=== PATIENT | female | born 1995 | race Caucasian/White ===

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

== ENCOUNTER 2018-06-04 17:50 | Emergency (ER) | payer BC, OTHER ==
[2018-06-04 18:18] VITALS: BP 119/66
--- NOTE | 2018-06-04 18:33 | UC ---
Throat Pain/Nasal Giovanni HPI - HPI Summary HPI Summary: Cold symptoms for 2 days with head congestion, sore throat, feels like she wants to vomit. - History of Current Complaint Chief Complaint: UCGeneralIllness Stated Complaint: SORE THROAT,NAUSEA, CONGESTION Time Seen by Provider: 06/04/18 18:25 Hx Obtained From: Patient Hx Last Menstrual Period: 05/15/18 ?: No Onset/Duration: Gradual Onset Severity: Mild Pain Intensity: 7 Cough: None Associated Signs & Symptoms: Positive: Nasal Discharge - Epiglottits Risk Factors Epiglottis Risk Factors: Negative - Allergies/Home Medications Allergies/Adverse Reactions: Allergies Allergy/AdvReac Type Severity Reaction Status Date / Time No Known Allergies Allergy Verified 06/04/18 18:18 Home Medications: Home Medications Biotin 1 mg PO DAILY 06/04/18 [History Confirmed 06/04/18] Spironolactone TAB* [Aldactone TAB*] 100 mg PO DAILY 06/04/18 [History Confirmed 06/04/18] l-Norgest/E.estradiol-E.estrad [Ashlyna 0.15-0.03-0.01 mg Tab] 1 each PO DAILY 06/04/18 [History Confirmed 06/04/18] PMH/Surg Hx/FS Hx/Imm Hx Previously Healthy: Yes - Surgical History Surgical History: Yes Surgery Procedure, Year, and Place: b/l wrists, [place] teeth, - Family History Known Family History: Positive: Other - GF with prostate cancer Negative: Respiratory Disease - Social History Occupation: Student Lives: Dormitory/Roommates Alcohol Use: Occasionally Substance Use Type: None Smoking Status (MU): Never Smoked Tobacco Review of Systems All Other Systems Reviewed And Are Negative: Yes ENT: Positive: Sore Throat, Nasal Discharge, Sinus Congestion Is Patient Immunocompromised?: No Physical Exam Triage Information Reviewed: Yes Appearance: Well-Appearing, No Pain Distress, Well-Nourished Vital Signs: Initial Vital Signs Temp 98.1 F 06/04/18 18:15 Pulse 101 06/04/18 18:15 Resp 16 06/04/18 18:15 BP 119/66 06/04/18 18:15 Pulse Ox 100 06/04/18 18:15 Vital Signs Reviewed: Yes Eye Exam: Normal ENT Exam: Normal Neck exam: Normal Respiratory Exam: Normal Cardiovascular Exam: Normal Abdominal Exam: Normal Bowel Sounds: Positive: Present Musculoskeletal Exam: Normal Neurological Exam: Normal Psychological Exam: Normal Skin Exam: Normal Throat Pain/Nasal Course/Dx - Course Course Of Treatment: Comfortable here. OTC cold meds as directed, rest, increase fluids. - Differential Dx/Diagnosis Differential Diagnosis/HQI/PQRI: URI Provider Diagnosis: URI (upper respiratory infection) Discharge - Sign-Out/Discharge Documenting (check all that apply): Patient Departure All imaging exams completed and their final reports reviewed: No Studies - Discharge Plan Condition: Fair Disposition: HOME Patient Education Materials: Upper Respiratory Infection (DC) Referrals: No Primary Care Phys,NOPCP [Primary Care Provider] - ROYAL DE LA O [[employer], APPLICATION, OTHER] - Additional Instructions: Rest, increase fluids, OTC cold meds Follow up with the [facility] [place] in 3-4 days if no improvement. - Billing Disposition and Condition Condition: FAIR Disposition: Home
== END 2018-06-04 18:35 | disposition home or self-care (01) ==
LOC: UCCORT 17:50
DX: J06.9 Acute upper respiratory infection, unspecified (principal)
CPT/HCPCS: 99211; G0463